=== PATIENT | male | born 1965 | race Caucasian/White ===

== ENCOUNTER 2016-10-20 21:42 | Inpatient (IN) | payer OTHER ==
[~2016-10-20] VITALS: Ht 185.4 cm; Wt 77.7 kg
[2016-10-20 23:08] LABS: HEMATOCRIT 38.6 % (38.0-50.0); MCH 34.3 PG (29.0-34.0); MCHC 35.8 G/DL (30.0-36.0); MEAN PLAT.VOLUME 8.6 uM^3 (9.0-12.4); PLATELET COUNT 363 K/uL (156-360); RBC DIS.WIDTH-CV 11.8 % (11.8-14.6); RBC DIS.WIDTH-SD 40.7 % (39-53); RED BLOOD COUNT 4.02 M/uL (4.00-5.50); WHITE BLOOD COUNT 19.3 K/uL (4.1-10.2)
[2016-10-20 23:17] LABS: CHLORIDE 100 mEq/L (99-109); SODIUM 133 mEq/L (136-147)
[2016-10-20 23:19] LABS: GLUCOSE 92 mg/dL (70-99)
[2016-10-20 23:20] LABS: ANION GAP 13 MEQ/L (2-14)
[2016-10-20 23:22] LABS: SERUM ETHYL ALCOHOL 239 mg/dL
[2016-10-20 23:23] LABS: GFR ESTIMATE (CALCULATED) > 59 mL/min/
[2016-10-20 23:24] LABS: UREA NITROGEN (BUN) 6 mg/dL (9-23)
[2016-10-20 23:29] LABS: TROP-I INTERPRETATION NEGATIVE; TROPONIN-I < 0.01 ng/mL (0.0-0.30)
[2016-10-21] VITALS (7 sets, daily range): BP systolic 109–141; BP diastolic 60–80
[2016-10-21 00:27] LABS: POINT-OF-CARE METER ID UU13113747
[2016-10-21 05:31] LABS: ALKALINE PHOSPHATASE 39 IU/L (3-129); ANION GAP 14 MEQ/L (2-14); CHLORIDE 101 MEQ/L (99-109); GFR ESTIMATE (CALCULATED) > 59 mL/min/; POTASSIUM 3.9 MEQ/L (3.7-5.4); SAMPLE HEMOLYSIS CHECK 0; SAMPLE ICTERIC CHECK 0; SAMPLE LIPEMIA CHECK 0; SODIUM 133 MEQ/L (136-147); TOTAL BILIRUBIN 0.5 MG/DL (0.0-1.0); UREA NITROGEN (BUN) 7 mg/dL (9-23)
[2016-10-21 05:33] LABS: GLUCOSE 160 mg/dL (70-99)
[2016-10-21 06:17] LABS: HEMATOCRIT 37.4 % (38.0-50.0); MCH 32.9 PG (29.0-34.0); MCHC 33.7 G/DL (30.0-36.0); MCV 97.7 FL (86-99); MEAN PLAT.VOLUME 9.4 uM^3 (9.0-12.4); PLATELET COUNT 350 K/uL (156-360); RBC DIS.WIDTH-CV 12.5 % (11.8-14.6); RBC DIS.WIDTH-SD 44.1 % (39-53); RED BLOOD COUNT 3.83 M/uL (4.00-5.50)
[2016-10-21 06:21] LABS: WHITE BLOOD COUNT 12.8 K/uL (4.1-10.2)
[2016-10-22 04:27] VITALS: BP 126/71
[2016-10-22 07:51] VITALS: BP 132/70
[2016-10-22 11:07] VITALS: BP 126/78
[2016-10-22 16:13] VITALS: BP 119/71
[2016-10-22 19:39] VITALS: BP 136/79
[2016-10-23 00:13] VITALS: BP 149/80
[2016-10-23 03:36] VITALS: BP 140/80
[2016-10-23 07:33] VITALS: BP 128/84
[2016-10-23 15:33] VITALS: BP 124/66
[2016-10-23 20:02] VITALS: BP 142/88
[2016-10-23 23:57] VITALS: BP 136/86
[2016-10-24 04:10] VITALS: BP 148/92
[2016-10-24 06:14] LABS: ANION GAP 6 MEQ/L (2-14); CHLORIDE 104 MEQ/L (99-109); GFR ESTIMATE (CALCULATED) > 59 mL/min/; GLUCOSE 116 mg/dL (70-99); POTASSIUM 3.7 MEQ/L (3.7-5.4); SAMPLE HEMOLYSIS CHECK 0; SAMPLE ICTERIC CHECK 0; SAMPLE LIPEMIA CHECK 0; SODIUM 138 MEQ/L (136-147); UREA NITROGEN (BUN) 4 mg/dL (9-23)
[2016-10-24 06:23] LABS: EOSINOPHIL (%) 2.5 % (0-5); EOSINOPHIL COUNT 0.2 K/uL (0-0.3); HEMATOCRIT 33.4 % (38.0-50.0); IMMATURE GRANULOCYTE (%) 0.1 % (0.0-0.7); LYMPHOCYTE COUNT 1.8 K/uL (1.0-2.8); MCH 34.7 PG (29.0-34.0); MCV 99.1 FL (86-99); MEAN PLAT.VOLUME 9.3 uM^3 (9.0-12.4); MONOCYTE (%) 7.2 % (3-12); MONOCYTE COUNT 0.5 K/uL (0-0.8); NEUTROPHIL (%) 66.1 % (45-76); PLATELET COUNT 272 K/uL (156-360); RBC DIS.WIDTH-CV 12.1 % (11.8-14.6); RED BLOOD COUNT 3.37 M/uL (4.00-5.50); WHITE BLOOD COUNT 7.5 K/uL (4.1-10.2)
[2016-10-24 08:19] VITALS: BP 142/83
[2016-10-24 11:00] VITALS: BP 134/77
[2016-10-24 16:13] VITALS: BP 138/80
[2016-10-24 19:53] VITALS: BP 139/79
[2016-10-25 00:16] VITALS: BP 138/75
[2016-10-25 03:51] VITALS: BP 148/82
[2016-10-25 08:17] VITALS: BP 139/82
[2016-10-25 16:14] VITALS: BP 125/75
[2016-10-26] VITALS (7 sets, daily range): BP systolic 129–185; BP diastolic 71–93
[2016-10-27 04:00] VITALS: BP 160/94
[2016-10-27 07:58] VITALS: BP 153/77
[2016-10-27 12:39] VITALS: BP 150/87
[2016-10-27 17:14] VITALS: BP 148/82
[2016-10-28 00:06] VITALS: BP 155/97
[2016-10-28 05:31] LABS: HEMATOCRIT 38.8 % (38.0-50.0); MCH 32.9 PG (29.0-34.0); MCHC 34.3 G/DL (30.0-36.0); PLATELET COUNT 412 K/uL (156-360); RBC DIS.WIDTH-SD 42.3 % (39-53); RED BLOOD COUNT 4.04 M/uL (4.00-5.50); WHITE BLOOD COUNT 11.2 K/uL (4.1-10.2)
[2016-10-28 07:44] VITALS: BP 160/82
[2016-10-28 17:00] VITALS: BP 118/72
[2016-10-28 23:46] VITALS: BP 117/74
[2016-10-29 08:22] VITALS: BP 130/73
[2016-10-29 11:46] VITALS: BP 124/67
[2016-10-29 16:30] VITALS: BP 138/75
[2016-10-29 23:54] VITALS: BP 154/98
[2016-10-30 07:20] VITALS: BP 148/89
[2016-10-30 11:30] VITALS: BP 149/90
[2016-10-30 16:00] VITALS: BP 152/82
[2016-10-31 00:09] VITALS: BP 150/87
[2016-10-31 08:15] VITALS: BP 136/86
[2016-10-31 16:32] VITALS: BP 180/100
[2016-10-31 16:41] VITALS: BP 130/90
[2016-10-31 23:50] VITALS: BP 131/82
[2016-11-01 07:55] VITALS: BP 133/86
[2016-11-01] MEDS ORDERED: OXYCODONE HCL5 MG PO (10:38)
[2016-11-01 16:32] VITALS: BP 131/79
== END 2016-11-01 23:55 | disposition home or self-care (01) | DRG 200 ==
LOC: EME → EDBD 21:42 → TRA 21:42 → EME 21:42 → 3EAST 23:30 → EDOF 23:30 → 3EAST 10-21 00:28
PROVIDERS: Emergency Medicine; Surgery
PROC: 0W9B30Z Drainage of Left Pleural Cavity with Drainage Device, Percutaneous Approach (ICD-10-PCS; principal; 2016-10-26)
DX: S27.2XXA Traumatic hemopneumothorax, initial encounter (principal); S22.42XA Multiple fractures of ribs, left side, initial encounter for closed fracture; F10.230 Alcohol dependence with withdrawal, uncomplicated; S27.322A Contusion of lung, bilateral, initial encounter; J98.11 Atelectasis; V47.0XXA Car driver injured in collision with fixed or stationary object in nontraffic accident, initial encounter; F10.229 Alcohol dependence with intoxication, unspecified; Y90.7 Blood alcohol level of 200-239 mg/100 ml; S20.212A Contusion of left front wall of thorax, initial encounter; S00.33XA Contusion of nose, initial encounter; D64.9 Anemia, unspecified; S01.21XA Laceration without foreign body of nose, initial encounter; R09.02 Hypoxemia; F17.210 Nicotine dependence, cigarettes, uncomplicated; Y92.410 Unspecified street and highway as the place of occurrence of the external cause; Y93.89 Activity, other specified
CPT/HCPCS: 70450; 70486; 71010; 71020; 71250; 71260; 72125; 72128; 72131; 74176; 80048; 80053; 82948; 83735; 84484; 85025; 85027; 93005; 94799; 97530 GO; 97530 GP; 99281; 99285; G0480; J1170; J1650; J1885; J3475; J7030; J7042; J7050